=== PATIENT | female | born 1985 | race Caucasian/White ===

== ENCOUNTER → 2018-12-15 | Outpatient (CLI) | payer OTHER ==
[~2018-12-15] MED LIST: IBUP60TA PO; MAPA500T2 PO; PRENTAB7 PO
[2018-12-15 19:35] LABS: BASO # 0.1 10^3/uL (0.0-0.2); BASO % 0.6 % (0.0-1.0); EOS # 0.3 10^3/uL (0.0-0.50); EOS % 3.3 % (0.0-3.0); HEMATOCRIT 33.5 % (36.0-47.0); HEMOGLOBIN 11.1 g/dl (12.0-15.5); LYMPH # 1.9 10^3/uL (1.5-4.5); LYMPH % 24.1 % (24.0-44.0); MEAN CORPUSCULAR HEMOGLOBIN 29.8 pg (27.0-33.0); MEAN CORPUSCULAR HGB CONC 33.1 g/dl (32.0-36.5); MEAN CORPUSCULAR VOLUME 89.8 fl (80.0-96.0); MONO # 0.6 10^3/uL (0.0-0.8); MONO % 7.6 % (0.0-5.0); PLATELET COUNT, AUTOMATED 174 10^3/uL (150-450); RED BLOOD COUNT 3.73 10^6/uL (4.00-5.40); WHITE BLOOD COUNT 7.8 10^3/uL (4.0-10.0)
[2018-12-15 21:10] LABS: CHLAMYDIA DNA AMPLIFICATION NEGATIVE (NEGATIVE); GC DNA AMPLIFICATION NEGATIVE (NEGATIVE)
[2018-12-16 16:19] LABS: HEPATITIS C VIRUS ABY INDEX 0.1 INDEX (<0.8); HIV 1&2 SCREEN CENTAUR NEGATIVE (NEGATIVE); RUBELLA IgG QUALITATIVE IMMUNE (IMMUNE)
== END ==
LOC: M WUC 15:20
PROVIDERS: ATTEND Advanced Practice Midwife
DX: Z36.89 Encounter for other specified antenatal screening (principal)

== ENCOUNTER → 2019-01-05 | Outpatient (CLI) | payer OTHER ==
--- NOTE | 2019-01-05 17:27 | REP ---
OB ULTRASOUND: Real-time sonographic evaluation of the gravid uterus is performed. There is a single living intrauterine gestation. Estimated gestational age is 20 weeks 1 day, EDC 05/24/2019. Today's measurements indicate appropriate growth. BPD 44 mm = 19 weeks 3 days, 32nd percentile HC 161 mm = 19 weeks 0 days, 15th percentile AC 151 mm = 20 weeks 2 days, 56th percentile FL 31 mm = 19 weeks 5 days, 39th percentile HC/AC ratio 1.07, within normal range. Estimated weight 320 grams, 40th percentile. Cervix closed and measures 4.4 cm in length. heart rate 153 beats per minute. SEEN/GROSSLY UNREMARKABLE Lateral ventricles yes Posterior fossa yes Upper lip yes Four-chamber heart Echogenic focus in the right ventricle likely related to moderator band. LVOT Cystic changes are seen in the choroid plexus bilaterally. RVOT cystic changes are see in the choroid plexus bilaterally. Stomach yes Cord insertion yes Three vessel cord yes Kidneys yes Bladder yes Spine yes position: Transverse with head toward the maternal right side. Placenta: Anterior and grade 0 with no previa or abruption. Amniotic fluid: Within normal limits. Electronically Signed by Se Vargas MD 01/06/2019 10:37 A
== END ==
LOC: M RAD 15:45
PROVIDERS: ATTEND Advanced Practice Midwife
DX: Z34.82 Encounter for supervision of other normal pregnancy, second trimester (principal)

== ENCOUNTER → 2019-02-01 | Outpatient (CLI) | payer OTHER | LOC: M LAB 15:38 | PROVIDERS: ATTEND Advanced Practice Midwife | DX: Z53.9 Procedure and treatment not carried out, unspecified reason (principal) ==

== ENCOUNTER → 2019-02-18 | Outpatient (CLI) | payer OTHER ==
[2019-02-18 13:13] LABS: HEMATOCRIT 31.9 % (36.0-47.0); HEMOGLOBIN 10.5 g/dl (12.0-15.5); MEAN CORPUSCULAR HEMOGLOBIN 30.4 pg (27.0-33.0); MEAN CORPUSCULAR HGB CONC 32.9 g/dl (32.0-36.5); MEAN CORPUSCULAR VOLUME 92.5 fl (80.0-96.0); PLATELET COUNT, AUTOMATED 186 10^3/uL (150-450); RED BLOOD COUNT 3.45 10^6/uL (4.00-5.40); WHITE BLOOD COUNT 9.6 10^3/uL (4.0-10.0)
== END ==
LOC: M WUC 09:06
PROVIDERS: ATTEND Advanced Practice Midwife
DX: Z34.82 Encounter for supervision of other normal pregnancy, second trimester (principal); Z3A.00 Weeks of gestation of pregnancy not specified

== ENCOUNTER → 2019-03-31 | Outpatient (CLI) | payer OTHER ==
[~2019-03-31] MED LIST changes: +IBUP600T42 PO; -IBUP60TA PO
--- NOTE | 2019-03-31 19:51 | REP ---
Clinical: Anatomical evaluation. Comparison: 01/05/2019 . Findings: Examination demonstrates a single live intrauterine in breech presentation. motion is identified by technologist. Placenta is noted anterior and grade grade zero without evidence for placenta previa or abruption. Amniotic fluid volume is normal. Cervix measures 3.4 cm in length and appears closed. No evidence for nuchal cord. Gestational age by LMP 32 weeks 2 days with BLANQUITA 05/24/2019 . Gestational age by current measurements 31 weeks 5 days with BLANQUITA 05/28/2019 . FHR equals 147 beats per minute. Estimated weight 1697 grams ( 20th percentile). Amniotic fluid index: 13.4 cm (8.5 - 24.3). Anatomical assessment demonstrates normal structures including cranium, cavum, cerebellum/posterior fossa, facial features, lungs, four-chamber heart/ventricular outflow tracts, diaphragm, stomach, cord insertion/three-vessel cord, kidneys/bladder, spine, and extremities. Previously identified left choroid plexus cyst has resolved. However, the right choroid plexus cyst is unchanged and measures 7 mm maximal diameter. Impression: 1. Single live advanced gestation in breech presentation demonstrating appropriate interval growth. 2. Continued evidence for 7 mm right choroid plexus cyst. Electronically Signed by Yahir Waller MD 03/31/2019 07:42 P
== END ==
LOC: M RAD 17:16
PROVIDERS: ATTEND Advanced Practice Midwife
DX: Z34.82 Encounter for supervision of other normal pregnancy, second trimester (principal); Z3A.31 31 weeks gestation of pregnancy; G93.0 Cerebral cysts

== ENCOUNTER → 2019-04-23 | Outpatient (CLI) | payer OTHER ==
[2019-04-23 20:00] LABS: BASO # 0.1 10^3/uL (0.0-0.2); BASO % 0.5 % (0.0-1.0); EOS # 0.3 10^3/uL (0.0-0.50); EOS % 3.2 % (0.0-3.0); HEMATOCRIT 32.4 % (36.0-47.0); HEMOGLOBIN 10.7 g/dl (12.0-15.5); LYMPH % 21.2 % (24.0-44.0); MEAN CORPUSCULAR HEMOGLOBIN 30.9 pg (27.0-33.0); MEAN CORPUSCULAR VOLUME 93.6 fl (80.0-96.0); MONO # 0.9 10^3/uL (0.0-0.8); MONO % 9.1 % (0.0-5.0); NEUTROPHILS # 6.1 10^3/uL (1.8-7.7); NEUTROPHILS % 64.7 % (36.0-66.0); PLATELET COUNT, AUTOMATED 189 10^3/uL (150-450); RED BLOOD COUNT 3.46 10^6/uL (4.00-5.40); WHITE BLOOD COUNT 9.4 10^3/uL (4.0-10.0)
== END ==
LOC: M WUC 16:17
PROVIDERS: ATTEND Obstetrics & Gynecology
DX: D64.9 Anemia, unspecified (principal)

== ENCOUNTER → 2019-04-26 | Outpatient (REF) | payer OTHER | LOC: M LAB REF 16:56 | PROVIDERS: ATTEND Obstetrics & Gynecology | DX: Z34.83 Encounter for supervision of other normal pregnancy, third trimester (principal) ==

== ENCOUNTER → 2019-05-01 | Outpatient (CLI) | payer OTHER | LOC: M WUC 10:18 | PROVIDERS: ATTEND Advanced Practice Midwife | DX: Z36.89 Encounter for other specified antenatal screening (principal); Z3A.00 Weeks of gestation of pregnancy not specified ==

== ENCOUNTER → 2019-05-21 | Outpatient (CLI) | payer OTHER ==
[~2019-05-21] MED LIST changes: +COLA100C5 PO; +IBUP80TA PO
--- NOTE | 2019-05-21 15:17 | REP ---
Clinical: Growth evaluation. Comparison: 03/31/2019 . Findings: Examination demonstrates a single live intrauterine in cephalic presentation. motion is identified by technologist. Placenta is noted anterior and grade to without evidence for placenta previa or abruption. Amniotic fluid volume is normal. Cervix measures 3.8 cm in length and appears closed. Nuchal cord cannot be excluded. Gestational age by LMP 39 weeks 4 days with BLANQUITA 05/24/2019 . Gestational age by current measurements 37 weeks 4 days with BLANQUITA 06/07/2019 . FHR equals 132 beats per minute. BPD 9.0 cm 36 weeks 4 days HC 32.9 cm 37 weeks 3-day AC 34.1 cm 38 weeks 0 days FL 7.3 cm 37 weeks 1 day HL 6.7 cm 38 weeks 4-day HC/AC ratio 0.97 Estimated weight 3237 grams ( 34th percentile based on age by LMP ). Amniotic fluid index: 10.7 cm (deepest pocket) Umbilical cord SD ratio: 2.76 (1.60 - 2.60) Impression: 1. Single live advanced gestation in cephalic presentation demonstrating less than appropriate interval growth. 2. Nuchal cord cannot be excluded. Electronically Signed by Yahir Waller MD 05/21/2019 03:09 P
== END ==
LOC: M RAD 14:07
PROVIDERS: ATTEND Advanced Practice Midwife
DX: O26.843 Uterine size-date discrepancy, third trimester (principal); Z3A.37 37 weeks gestation of pregnancy

== ENCOUNTER 2019-05-31 11:53 | Inpatient (IN) | payer OTHER ==
[~2019-05-31] VITALS: Ht 177.8 cm; Wt 70.3 kg
[2019-05-31] VITALS (12 sets, daily range): BP systolic 102–137; BP diastolic 54–72
[~2019-05-31 11:53] MED LIST changes: -COLA100C5 PO; -IBUP80TA PO
[2019-05-31] MEDS ORDERED: LR 1,000 ML IV SCH (12:14)
[2019-05-31] MEDS ORDERED: OXYTOCIN DRIP 30 UNITS in APPROPRIATE DILUENT 1 EA IV SCH ×2 (12:15→19:23)
[2019-05-31 13:31] LABS: HEMATOCRIT 31.6 % (36.0-47.0); HEMOGLOBIN 10.5 g/dl (12.0-15.5); MEAN CORPUSCULAR HEMOGLOBIN 29.4 pg (27.0-33.0); MEAN CORPUSCULAR HGB CONC 33.2 g/dl (32.0-36.5); MEAN CORPUSCULAR VOLUME 88.5 fl (80.0-96.0); PLATELET COUNT, AUTOMATED 171 10^3/uL (150-450); RED BLOOD COUNT 3.57 10^6/uL (4.00-5.40); WHITE BLOOD COUNT 9.3 10^3/uL (4.0-10.0)
--- NOTE | 2019-05-31 14:47 | HPE ---
DATE OF ADMISSION: 05/31/2019 HISTORY OF PRESENT ILLNESS: Patient is a 34-year-old female who is a 2, para 1-0-0-1, at 41 weeks gestation with an estimated date of delivery (BLANQUITA) of 05/24/2019. She initiated care in her first trimester with [facility]. Her has been uncomplicated. She presents to labor and delivery for an induction of labor. He reports active movement. She denies contractions, vaginal bleeding, leaking of fluid. ALLERGIES: 1. CECLOR. 2. SULFA. 3. LATEX. MEDICATIONS: - vitamins MEDICAL HISTORY: No current problems. SURGICAL HISTORY: None. FAMILY HISTORY: Diabetes. SOCIAL HISTORY: Patient is . She is a teacher. She denies history of abuse, emotional, physical or sexual. Patient denies being a smoker. She denies use of alcohol during . Reports occasional use prior to . She denies any illicit recreational drug use prior to or during . PAST PREGNANCIES: May 2016 at 41 weeks and 2 days gestation patient delivered a male weighing 8 pounds 4 ounces by vaginal delivery with no complications. LABS: Blood type is A positive with an antibody screen that is negative. Her hemoglobin and hematocrit in her first trimester were 11.1 and 33.5 with platelets of 174, rubella immune, VDRL nonreactive, urine culture no growth. Hepatitis B surface antigen negative. HIV negative. Hepatitis C nonreactive. Gonorrhea and chlamydia negative. [facility] NIPT testing is low risk and male. 1 hour glucose tolerance test is 76 with a hemoglobin and hematocrit of 10.5 and 31.9 with platelets of 186. Her Group B Streptococcus (GBS) is negative. heart rate is 120, moderate variability, positive accelerations, no decelerations. Contractions are irregular. STERILE VAGINAL EXAM: 2-3 cm dilated, 90% effaced, mid position, soft, with scant show. Cephalic presentation noted by vaginal exam. VITAL SIGNS: Blood pressure is 123/62 with a heart rate of 75, respirations 18. PHYSICAL ASSESSMENT: General: Alert and oriented times three. Respiratory: Regular rate with no use of accessory muscles. Clear bilaterally in both lung bases. Abdomen: Gravid and nontender to touch. Lower extremities: No edema and no clonus. ASSESSMENT: 1. Intrauterine at 41 weeks gestation, GBS negative, category 1 heart rate tracing. PLAN: Admit patient to labor and delivery. Out of bed ad olinda. Clear liquid tray. Saline lock and labs per unit protocol. Anesthesia consult per patient's request. IV Pitocin to be started per order. Anticipate cervical change and spontaneous vaginal delivery.
[2019-05-31] MEDS ORDERED: PROMETHAZINE INJ 25 MG/ML VIAL (J2550) IV ONE (17:00)
[2019-05-31] MEDS ORDERED: BUTORPHANOL 2 MG/ML INJ (J0595) IV ONE (17:00)
[2019-05-31] MEDS ORDERED: METHYLERGONOVINE MALEATE 0.2 MG TAB PO PRN (19:30)
[2019-05-31] MEDS ORDERED: DIBUCAINE 1% OINTMENT 30GM TOP PRN (19:30)
[2019-05-31] MEDS ORDERED: LIDOCAINE 1% MDV 20ML VIAL INFIL ONE (19:30)
[2019-05-31] MEDS ORDERED: IBUPROFEN 600 MG TAB PO PRN (19:30)
[2019-05-31] MEDS ORDERED: MEASLES,MUMPS,RUBELLA VACCINE INJ (MMR-II) (90707) SC SCH (19:30)
[2019-05-31] MEDS ORDERED: ACETAMINOPHEN TAB 650MG DOSE (2X325MG) PO PRN (19:30)
[2019-05-31] MEDS ORDERED: DOCUSATE SODIUM 100 MG CAP PO PRN (19:30)
[2019-05-31] MEDS ORDERED: RHOGAM 300 MCG (1500 IU) INJ (J2790) IM SCH (19:30)
[2019-05-31] MEDS ORDERED: IBUPROFEN 800 MG TAB PO PRN (19:30)
[2019-05-31] MEDS ORDERED: ANUSOL HC CREAM 30GM TOP PRN (19:30)
[2019-05-31] MEDS ORDERED: ACETAMINOPHEN 500 MG TAB PO PRN (19:30)
--- NOTE | 2019-05-31 20:50 | DN ---
DATE: 05/31/2019 DELIVERY TIME: 1811 hours. STATUS: Delivered. Spontaneous vaginal delivery. PROVIDER: Debbie Stallworth CNM, MESHA. ANESTHESIA: None. ESTIMATED BLOOD LOSS: 300. FINDINGS: Male, 7 pounds 2 ounces, 3230 grams, scores 9/10. Patient is a 34-year-old female who is now a 2, para 2-0-0-2, who presented to labor and delivery for an induction of labor at 41 weeks gestation. Her labor was augmented with intravenous (IV) Pitocin. She progressed to fully dilated at 1802 hours and pushed to a living male in the right occiput anterior (GRUPO) position with restitution to right occiput transverse (ROT) at 1811 hours. Anterior shoulder delivered with ease and the corpus immediately followed. The baby was placed on the abdomen, active and crying. The cord was clamped times two after three minutes and pulsation ceased and cut by provider. The placenta delivered spontaneously and intact at 1815 hours. Uterine hemostasis was achieved via rapid infusion of IV Pitocin and fundal massage. The perineum, vagina and cervix was inspected and found to have a second degree perineal laceration that was repaired with a #3.[address]-1 using 1% lidocaine. The mom plans on her . She plans on naming him Deyvi. Both mom and baby are in stable condition. All counts of instruments and sponges are correct.
[2019-06-01 06:00] VITALS: BP 91/52
[2019-06-01] MEDS: PRENATAL VITAMINS CHEWABLE TABLET PO SCH (08:12)
[2019-06-01 18:00] VITALS: BP 107/54
[2019-06-02 06:00] VITALS: BP 89/54
--- NOTE | 2019-06-02 07:13 | IPNPDOC ---
Progress Note Date of Service: Jun 02, 2019 Day#: 2 Progress Note SUBJECT: 34 yo G2 now P2002 PPD#2 s/p at 41 wks after IOL. She delivered a male weighing 3230g. She has been ambulating, voiding spontaneously without issue and tolerating regular diet. Her pain is well controlled. Breast feeding without issue. Reports lochia is like a normal period. Patient is ambulating well. OBJECTIVE: VITAL SIGNS: Within normal limits, afebrile. Vital Signs Label Value Date Time Patient Temperature 96.5 degrees F 06/02/19 06 Temperature Source Temporal 06/02/19 06 Pulse 61 06/02/19 06 Respiratory Rate 16 bpm 06/02/19 06 Blood Pressure Assessment 89/54 (66) 06/02/19 06 Source Automatic Cuff (NIBP) Bedside Pulse Oximetry 97 % 06/02/19 06 Alert and oriented times three. Breath sounds clear to auscultation. Heart rate: Regular rate and rhythm, no murmurs, rubs or gallops. Abdomen: Fundus firm at U-2. Soft, NTTP. ASSESSMENT: 34 yo G2 now P2 PPD#1 s/p , stable and doing well. Vitals within normal limits, afebrile, hemodynamically stable with no evidence of infection. PLAN: 1. Discharge to home today. 2. Tylenol and Motrin for pain. 3. Encourage breast feeding and ambulation. 4. Routine PP visit in 6 weeks in clinic. 5. Discussed return precautions at length. VS, I&O, 24H, Fishbone Vital Signs/I&O Vital Signs Date Time Temp Pulse Resp B/P (MAP) Pulse Ox O2 Delivery O2 Flow Rate FiO2 06/02/19 06:00 96.5 61 16 89/54 (66) 97 JASSI GALLEGOS PGY-3 Jun 02, 2019 07:13
[2019-06-02] MEDS ORDERED: COLA100C5 PO (07:17)
[2019-06-02] MEDS ORDERED: IBUP80TA PO (07:17)
--- NOTE | 2019-06-02 07:22 | DS.PDOC ---
Discharge Summary General Date of Admission May 31, 2019 at 11:53 Date of Discharge 06/02/19 Discharge Summary PROCEDURES PERFORMED DURING STAY: Spontaneous vaginal delivery ADMITTING DIAGNOSES: 1. post dates . DISCHARGE DIAGNOSES: 1. s/p COMPLICATIONS/CHIEF COMPLAINT: Induction. HISTORY OF PRESENT ILLNESS: 34 yo admitted at 41 0/7 wks for IOL. was uncomplicated. HOSPITAL COURSE: She presented for IOL, her labor was augmented with pitocin. She progressed to fully dilated and on 05/31 at 1811 she had a spontaneous vaginal delivery of a male infant weighing 3230g. Apgars were 9/10. Please see delivery note for details DISCHARGE MEDICATIONS: Please see below. ALLERGIES: Please see below. LABORATORY DATA: Please see below. IMAGING: none ACTIVITY: As tolerated. DIET: Regular DISCHARGE PLAN: Home with 6 wk follow up DISPOSITION: d/c home without services. DISCHARGE INSTRUCTIONS: 1. Continue with tylenol and motrin as needed for pain 2. Please return with any fevers, heavy bleeding, severe pain. ITEMS TO FOLLOWUP ON ON OUTPATIENT: 1. none. DISCHARGE CONDITION: Stable. TIME SPENT ON DISCHARGE: Greater than 20 minutes. I have read and attest to the above documentation Leroy Castellanos DO Vital Signs/I&Os Vital Signs Date Time Temp Pulse Resp B/P (MAP) Pulse Ox O2 Delivery O2 Flow Rate FiO2 06/02/19 06:00 96.5 61 16 89/54 (66) 97 Discharge Medications Scheduled Pnv No.95/Ferrous Fum/Folic AC ( Vitamins Tablet) 1 Tab Tab, 1 TAB PO DAILY, (Reported) Scheduled PRN Docusate Sodium (Colace) 100 Mg Capsule, 100 MG PO QHSP PRN for CONSTIPATION Ibuprofen (Ibuprofen) 800 Mg Tablet, 800 MG PO Q8HP PRN for PAIN SCALE 6-10 Allergies Coded Allergies: Sulfa (Sulfonamide Antibiotics) (Verified Allergy, Severe, BAD HIVES AND SWELLING ALL OVER BODY, 05/31/19) cefaclor (Verified Allergy, Severe, BAD HIVES AND SWELLING ALL OVER BODY, 05/31/19) JASSI GALLEGOS PGY-3 Jun 02, 2019 07:22 JERRICA CASTELLANOS DO Jun 02, 2019 08:07
[2019-06-02] MEDS: PRENATAL VITAMINS CHEWABLE TABLET PO SCH (08:32)
== END 2019-06-02 10:17 | disposition home or self-care (01) | DRG 807 ==
LOC: M LDI 11:53 → M OBS 20:59
PROVIDERS: ADMIT Advanced Practice Midwife; ATTEND Advanced Practice Midwife
PROC: 10E0XZZ Delivery of Products of Conception, External Approach (ICD-10-PCS; principal; 2019-05-31)
PROC: 0KQM0ZZ Repair Perineum Muscle, Open Approach (ICD-10-PCS; 2019-05-31)
PROC: 3E033VJ Introduction of Other Hormone into Peripheral Vein, Percutaneous Approach (ICD-10-PCS; 2019-05-31)
DX: O48.0 Post-term pregnancy (principal); Z37.0 Single live birth; Z3A.41 41 weeks gestation of pregnancy; O70.1 Second degree perineal laceration during delivery

== ENCOUNTER → 2021-02-08 | Outpatient (REF) | payer OTHER ==
[~2021-02-08] MED LIST changes: +COLA100C5 PO; +IBUP80TA PO
== END ==
LOC: M SFHCWAGY 10:17
PROVIDERS: ATTEND Advanced Practice Midwife
DX: Z12.4 Encounter for screening for malignant neoplasm of cervix (principal); R87.610 Atypical squamous cells of undetermined significance on cytologic smear of cervix (ASC-US)
CPT/HCPCS: 87624; G0123

== ENCOUNTER → 2021-08-23 | Outpatient (CLI) | payer OTHER ==
[2021-08-23 10:58] LABS: BASO # 0.1 10^3/uL (0.0-0.2); BASO % 1.6 % (0.0-1.0); EOS # 0.2 10^3/uL (0.0-0.5); EOS % 3.4 % (0.0-3.0); HEMATOCRIT 41.4 % (36.0-47.0); HEMOGLOBIN 13.3 g/dl (12.0-15.5); LYMPH # 2.6 10^3/uL (1.5-5.0); LYMPH % 41.5 % (24.0-44.0); MEAN CORPUSCULAR HEMOGLOBIN 28.7 pg (27.0-33.0); MEAN CORPUSCULAR HGB CONC 32.1 g/dl (32.0-36.5); MEAN CORPUSCULAR VOLUME 89.2 fl (80.0-96.0); MONO # 0.5 10^3/uL (0.0-0.8); MONO % 7.3 % (2.0-8.0); NEUTROPHILS # 2.8 10^3/uL (1.5-8.5); PLATELET COUNT, AUTOMATED 207 10^3/uL (150-450); RED BLOOD COUNT 4.64 10^6/uL (4.00-5.40); WHITE BLOOD COUNT 6.2 10^3/uL (4.0-10.0)
[2021-08-23 11:33] LABS: ALBUMIN 3.6 GM/DL (3.2-5.2); ALT/SGPT 17 U/L (12-78); BILIRUBIN,TOTAL 0.7 MG/DL (0.2-1.0); BLOOD UREA NITROGEN 19 MG/DL (7-18); CARBON DIOXIDE LEVEL 29 MEQ/L (21-32); CHLORIDE LEVEL 108 MEQ/L (98-107); CHOLESTEROL LEVEL 164 MG/DL (<200); CHOLESTEROL RISK RATIO 2.447 (<5); FREE T4 1.04 NG/DL (0.76-1.46); GLOMERULAR FILTRATION RATE > 60.0 (>60); GLUCOSE, FASTING 80 MG/DL (70-100); HDL CHOLESTEROL 67 MG/DL (>40); LDL CHOLESTEROL 83 MG/DL (<100); NON-HDL-C 97 MG/DL; POTASSIUM SERUM 4.2 MEQ/L (3.5-5.1); SODIUM LEVEL 142 MEQ/L (136-145); TRIGLYCERIDES LEVEL 70 MG/DL (<150)
== END ==
LOC: M WUC 08:10
PROVIDERS: ATTEND Family Medicine
DX: Z13.29 Encounter for screening for other suspected endocrine disorder (principal); Z13.220 Encounter for screening for lipoid disorders; Z13.0 Encounter for screening for diseases of the blood and blood-forming organs and certain disorders involving the immune mechanism

== ENCOUNTER → 2022-07-17 | Outpatient (CLI) | payer OTHER ==
[2022-07-17 11:23] LABS: BASO # 0.1 10^3/uL (0.0-0.2); EOS # 0.1 10^3/uL (0.0-0.5); HEMATOCRIT 36.8 % (36.0-47.0); HEMOGLOBIN 11.9 g/dl (12.0-15.5); LYMPH % 39.5 % (24.0-44.0); MEAN CORPUSCULAR HGB CONC 32.3 g/dl (32.0-36.5); MEAN CORPUSCULAR VOLUME 89.8 fl (80.0-96.0); MONO # 0.3 10^3/uL (0.0-0.8); MONO % 6.2 % (2.0-8.0); NEUTROPHILS # 2.6 10^3/uL (1.5-8.5); NEUTROPHILS % 52.1 % (36.0-66.0); PLATELET COUNT, AUTOMATED 177 10^3/uL (150-450)
[2022-07-17 13:50] LABS: ALBUMIN 3.6 GM/DL (3.2-5.2); ALT/SGPT 13 U/L (12-78); BILIRUBIN,TOTAL 0.7 MG/DL (0.2-1.0); BLOOD UREA NITROGEN 15 MG/DL (7-18); CARBON DIOXIDE LEVEL 28 MEQ/L (21-32); CHLORIDE LEVEL 108 MEQ/L (98-107); CHOLESTEROL LEVEL 161 MG/DL (<200); CHOLESTEROL RISK RATIO 2.596 (<5); CREATININE FOR GFR 0.88 MG/DL (0.55-1.30); GLOMERULAR FILTRATION RATE > 60.0 (>60); GLUCOSE, FASTING 87 MG/DL (70-100); HDL CHOLESTEROL 62 MG/DL (>40); LDL CHOLESTEROL 84 MG/DL (<100); NON-HDL-C 99 MG/DL; POTASSIUM SERUM 4.2 MEQ/L (3.5-5.1); SODIUM LEVEL 139 MEQ/L (136-145); TOTAL PROTEIN 6.7 GM/DL (6.4-8.2); TRIGLYCERIDES LEVEL 73 MG/DL (<150)
== END ==
LOC: M LAB 10:31
PROVIDERS: ATTEND Family Medicine
DX: Z13.29 Encounter for screening for other suspected endocrine disorder (principal); Z13.0 Encounter for screening for diseases of the blood and blood-forming organs and certain disorders involving the immune mechanism; Z13.220 Encounter for screening for lipoid disorders